=== PATIENT | male | born 1990 | race Caucasian/White ===

== ENCOUNTER 2021-05-02 11:48 | Inpatient (IN) | payer BC, OTHER ==
[~2021-05-02] VITALS: Ht 182.9 cm; Wt 87.1 kg
--- NOTE | 2021-05-02 11:55 | NUR ---
BIBA TO BED 9
[2021-05-02 11:56] VITALS: BP 148/84
--- NOTE | 2021-05-02 11:56 | NUR ---
PD AT BEDSIDE
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
[2021-05-02] MEDS ORDERED: ONDANSETRON 4 MG/2 ML VIAL IVP ONE (12:15)
[2021-05-02] MEDS ORDERED: MORPHINE SULFATE 4 MG/ML SYR IVP ONE (12:15)
--- NOTE | 2021-05-02 12:27 | NUR ---
PT TAKEN TO XRAY VIA [facility]
--- NOTE | 2021-05-02 12:59 | NUR ---
PT RETURNED FROM XRAY
--- NOTE | 2021-05-02 14:47 | NUR ---
PT TAKEN TO CT SCAN VIA [facility]
--- NOTE | 2021-05-02 15:01 | NUR ---
PT RETURNED FROM CT SCAN
--- NOTE | 2021-05-02 15:34 | NUR ---
PAGED [phone] FOR ORTHOPEDIC CONSULT
--- NOTE | 2021-05-02 16:51 | NUR ---
RECEIVED CALL FROM ED FOR REPORT ON NEW ADMIT
[2021-05-02] MEDS ORDERED: ONDANSETRON 4 MG/2 ML VIAL IVP PRN (16:55)
[2021-05-02] MEDS ORDERED: MORPHINE SULFATE 2 MG/ML SYR IVP PRN (16:55)
[2021-05-02] MEDS ORDERED: ACETAMINOPHEN 325 MG TAB PO PRN (16:55)
[2021-05-02] MEDS ORDERED: SODIUM PHOS / POTASSIUM PHOS 1 PKT PDR PO PRN (16:55)
[2021-05-02] MEDS ORDERED: MAG SULF 2000 MG/WATER PREMIX 50 ML IV PRN (16:55)
[2021-05-02] MEDS: NACL 0.9% 1,000 ML IV SCH (16:55)
[2021-05-02] MEDS ORDERED: LORazepam 2 MG/ML VIAL IM/IVP PRN (16:55)
[2021-05-02] MEDS ORDERED: POTASSIUM CHLORIDE 10 MEQ TABER PO PRN (16:55)
[2021-05-02] MEDS ORDERED: DOCUSATE SODIUM 100 MG GELCAP PO PRN (16:55)
[2021-05-02] MEDS ORDERED: ZOLPIDEM 5 MG TAB PO PRN (16:55)
--- NOTE | 2021-05-02 17:01 | NUR ---
XRAY AT BEDSIDE
--- NOTE | 2021-05-02 17:05 | NUR ---
Patient will be admitted to care of DR MALDONADO. Admited to MED SURG. Will go to room 104 B. Belongings list completed. Report to KETAN NELSON.
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
[2021-05-02 18:01] LABS: PROTHROMBIN TIME 10.7 secs (10.8-13.4)
[2021-05-02 18:13] LABS: CHOL/HDL RATIO 2.9 (1-4.5); FREE T4 (FREE THYROXINE) 1.07 ng/dL (0.76-1.46); PHOSPHORUS 2.2 mg/dL (2.5-4.9); THYROID STIMULATING HORMONE 1.32 uIU/mL (0.34-3.74)
[2021-05-02 18:20] VITALS: BP 131/71
--- NOTE | 2021-05-02 19:22 | NUR ---
PT HAS BEEN ENDORSED TO ONLINE BANKING SPECIALIST NURSE IN STABLE CONDITION. POC DISCUSSED.
--- NOTE | 2021-05-02 19:23 | NUR ---
RECEIVED PT FROM DAY SHIFT NURSE FOR CONTINUITY OF CARE. PT IS AWAKE, ALERT AND ORIENTED. ON ROOM AIR. PT HAS A RIGHT AC 20 G RUNNING NS AT 100.ALL PRECAUTIONS IN PLACE. CALL LIGHT WITHIN REACH. WILL CONTINUE TO MONITOR.
[2021-05-02 20:00] VITALS: BP 124/63
[2021-05-02] MEDS: HYDROcodone/APAP 5/325 MG 1 TAB TAB PO PRN (21:00)
--- NOTE | 2021-05-02 21:00 | NUR ---
PT COMPLAINED OF PAIN ON PELVIC AREA. PRN PAIN MEDICATION GIVEN.CALL LIGHT WITHIN REACH. WILL CONTINUE TO MONITOR.
--- NOTE | 2021-05-02 23:30 | NUR ---
PT ASLEEP.VISIBLE CHEST RISE AND FALL NOTED. SAFETY MEASURES IN PLACE. CALL LIGHT WITHIN REACH. WILL CONTINUE TO MONITOR.
[2021-05-02 23:55] LABS: APPEARANCE,URINE CLEAR (CLEAR); BILIRUBIN,URINE NEGATIVE (NEGATIVE); BLOOD, URINE NEGATIVE (NEGATIVE); COLOR,URINE YELLOW (YELLOW); LEUKOCYTE ESTERASE ,URINE NEGATIVE (NEGATIVE); NITRITE, URINE NEGATIVE (NEGATIVE); PH,URINE 6.5 (5.0-9.0); UGLUCOSE NEGATIVE (NEGATIVE)
[2021-05-03 00:05] LABS: BARBITURATE, URINE NEGATIVE ng/ml (NEG <=200); BENZODIAZEPINE, URINE NEGATIVE ng/mL (NEG <=200); CANNABINOID, URINE POSITIVE ng/mL (NEG <=50); COCAINE, URINE POSITIVE ng/mL (NEG <=300); OPIATE, URINE POSITIVE ng/mL (NEG <=2000); PHENCYCLIDINE SCREEN,URINE NEGATIVE ng/mL (NEG <=25)
[2021-05-03] MEDS: NACL 0.9% 1,000 ML IV SCH ×3 (02:55→23:02)
--- NOTE | 2021-05-03 03:05 | NUR ---
ROUNDS MADE. PT ASKED FOR BLANKET. ALL NEEDS ATTENDED. PT STABLE. NO OTHER COMPLAINS AT THIS TIME. CALL LIGHT WITHIN REACH. WILL CONTINUE TO MONITOR.
[2021-05-03 04:00] VITALS: BP 116/72
[2021-05-03 06:33] LABS: BASOPHILS % (AUTO) 0.4 % (0.0-2.0); EOSINOPHILS # (AUTO) 0.1 K/uL (0-0.4); EOSINOPHILS % (AUTO) 0.6 % (0.0-4.0); HEMATOCRIT 38.5 % (36-52); HEMOGLOBIN 13.1 g/dL (12.0-18.0); LYMPHOCYTES # (AUTO) 1.2 K/uL (2.0-11.5); LYMPHOCYTES % (AUTO) 13.2 % (20.5-51.1); MEAN CORPUSCULAR HEMOGLOBIN 32 pg (27-31); MEAN CORPUSCULAR HGB CONC 34 g/dL (33-37); MEAN CORPUSCULAR VOLUME 94.8 fL (80-94); MONOCYTES # (AUTO) 0.9 K/uL (0.8-1.0); MONOCYTES % (AUTO) 9.9 % (1.7-9.3); NEUTROPHILS % (AUTO) 75.9 % (42.2-75.2); PLATELET COUNT (AUTO) 204 K/uL (140-450); RED BLOOD CELL COUNT(AUTO) 4.06 MIL/uL (4.20-6.10); WHITE BLOOD COUNT (AUTO) 9.2 K/uL (4.8-10.8)
--- NOTE | 2021-05-03 06:37 | NUR ---
PT STABLE. NO ACUTE EVENTS THROUGHOUT THE NIGHT. PT NOT IN DISTRESS AND HAS NO COMPLAINS AT THIS TIME. ALL NEEDS ATTENDED.CALL LIGHT WITHIN REACH.WILL ENDORSE TO AM SHIFT NURSE.FOR CONTINUITY OF CARE.
[2021-05-03 06:54] LABS: ALBUMIN 3.8 g/dL (3.4-5.0); ANION GAP 11.3 (8-16); CARBON DIOXIDE 27.3 mmol/L (21-32); CREATININE 0.8 mg/dL (0.6-1.3); POTASSIUM 3.6 mmol/L (3.5-5.1); TOTAL BILIRUBIN 2.8 mg/dL (0.0-1.0)
--- NOTE | 2021-05-03 07:05 | NUR ---
RECEIVED REPORT FROM PET COUNSELOR NURSE FOR CONTINUITY OF CARE. PATIENT IN BED SLEEPING AT THIS TIME. RESPIRATIONS ARE EVEN AND UNLABORED. NO SIGNS OF DISTRESS NOTED. PATIENT IS ALERT AND ORIENTED X4. ABLE TO VERBALIZE NEEDS. PATIENT IS ON ROOM AIR. PATIENT IS ON REGULAR DIET, ABD IS NON-TENDER, NON-DISTENDED WITH BOWEL SOUNDS PRESENT. PATIENT IS CONTINENT OF BOWEL AND BLADDER. UTILIZES URINAL AT BEDSIDE. PATIENT HAS IV TO LFA 22G. IV IS PATENT, AND INTACT, AND INFUSING NS @ 100 ML/HR. PATIENT PATIENT HAS ABRASION TO L FLANK, L KNEE, AND RFA. WILL CONTINUE TO MONITOR. CALL LIGHT WITHIN REACH. ALL SAFETY MEASURES IN PLACE.
--- NOTE | 2021-05-03 07:43 | NUR ---
PT ENDORSED TO AM SHIFT NURSE FOR CONTINUITY OF CARE. PT IS STABLE.
[2021-05-03] MEDS: HYDROcodone/APAP 5/325 MG 1 TAB TAB PO PRN ×3 (08:19→20:47)
--- NOTE | 2021-05-03 08:19 | NUR ---
PATIENT VERBALIZED PAIN. RATED PAIN AT 6/10. WILL MEDICATE PER MD ORDER. WILL CONTINUE TO MONITOR.
--- NOTE | 2021-05-03 09:21 | NUR ---
RE-ASSESSED PATIENT PAIN SCALE. PATIENT IN BED RESTING AT THIS TIME. WILL CONTINUE TO MONITOR.
--- NOTE | 2021-05-03 09:37 | NUR ---
PATIENT HAS BEEN SCREENED AND CATEGORIZED LOW NUTRITION RISK. PATIENT WILL BE SEEN WITHIN 7 DAYS OF ADMISSION. 05/09/21 REFERRAL RECEIVED NOT APPLICABLE [address]IN[address]
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
--- NOTE | 2021-05-03 11:45 | NUR ---
DID ROUNDS ON PATIENT. PATIENT IN BED WATCHING TELEVISION AT THIS TIME. PATIENT STATED HE WAS STARTING TO FEEL SOME DISCOMFORT/PAIN. RATES PAIN 2/. EDUCATED PATIENT ON ALTERNATIVE PAIN MANAGEMENT TECHNIQUES/RELAXATION TECHNIQUES. PATIENT STATED HE WILL "GIVE IT A TRY". WILL CONTINUE TO MONITOR.
--- NOTE | 2021-05-03 14:47 | NUR ---
PATIENT COMPLAIN OF PAIN. PATIENT STATES PAIN IS 6/10. WILL MEDICATE PER MD ORDER. WILL CONTINUE TO MONITOR.
[2021-05-03 16:00] VITALS: BP 112/62
--- NOTE | 2021-05-03 17:12 | NUR ---
DID ROUNDS ON PATIENT. PATIENT IN BED TALKING ON THE PHONE WITH FAMILY. RESPIRATIONS ARE EVEN AND UNLABORED. NO SIGNS OF DISTRESS NOTED. WILL CONTINUE TO MONITOR.
--- NOTE | 2021-05-03 19:05 | NUR ---
ENDORSED PATIENT TO DRONE OPERATOR NURSE FOR CONTINUITY OF CARE. PATIENT STABLE.
--- NOTE | 2021-05-03 19:06 | NUR ---
RECEIVED ENDORSEMENT FROM MORNING SHIFT FOR CONTINUITY OF CARE. PATIENT ALERT AND AWAKE. A&O X4. VERBALLY RESPONSIVE AND ABLE TO COMMUNICATE NEEDS. DENIES PAIN AT THIS TIME. ON RA WITH AN 02 SAT OF 98%. RESPIRATIONS EVEN AND UNLABORED. NO APPARENT S/SX OF ACUTE RESPIRATORY DISTRESS NOTED AT THIS TIME. IV SITE ON LFA 22G PATENT AND INTACT WITH NS INFUSING @ 100 ML/HR. PATIENT HAS ABRASION TO L FLANK, L KNEE, AND RFA. POC AND WHITE BOARD COMMUNICATION UPDATED. ALL SAFETY MEASURES IN PLACE. CALL LIGHT WITHIN REACH. ENCOURAGED PATIENT TO USE CALL LIGHT FOR ANY NEEDS/ASSISTANCE. WILL CONTINUE TO MONITOR
--- NOTE | 2021-05-03 19:07 | NUR ---
Patient's Plan of Care was discussed and reviewed with NAZARIO: yvonne. will continue to monitor
--- NOTE | 2021-05-03 20:40 | NUR ---
PATIENT C/O OF GENERALIZED PAIN 12/02. WILL ADMINISTER PRN MEDICATION PER MD ORDER.
--- NOTE | 2021-05-03 22:40 | NUR ---
CHECKED PATIENT. STABLE AND AWAKE WATCHING TV. DENIES PAIN AT THIS TIME. RESPIRATIONS EVEN AND UNLABORED. NO APPARENT S/SX OF ACUTE RESPIRATORY DISTRESS. WHITE BOARD COMMUNICATION UPDATED. ALL SAFETY MEASURES IN PLACE. CALL LIGHT WITHIN REACH. WILL CONTINUE TO MONITOR.
[2021-05-04] VITALS: BP 107/55
--- NOTE | 2021-05-04 00:40 | NUR ---
ROUNDED ON PATIENT. STABLE AND ASLEEP IN SUPINE POSITION. BED IN HIGH FOWLERS. RESPIRATIONS EVEN AND UNLABORED. NO APPARENT S/SX OF ACUTE RESPIRATORY DISTRESS. WHITE BOARD COMMUNICATION UPDATED. ALL SAFETY MEASURES IN PLACE. CALL LIGHT WITHIN REACH. WILL CONTINUE TO MONITOR.
--- NOTE | 2021-05-04 02:40 | NUR ---
ANSWERED CALL LIGHT. PATIENT C/O OF LEFT HIP PAIN 12/02. WILL ADMINISTER PRN MEDICATION PER MD ORDER.
[2021-05-04] MEDS: HYDROcodone/APAP 5/325 MG 1 TAB TAB PO PRN ×2 (02:48→09:54)
--- NOTE | 2021-05-04 04:40 | NUR ---
CHECKED PATIENT. STABLE AND ASLEEP. CHEST RISING AND FALLING. RESPIRATIONS EVEN AND UNLABORED. NO APPARENT S/SX OF ACUTE RESPIRATORY DISTRESS. WHITE BOARD COMMUNICATION UPDATED. ALL SAFETY MEASURES IN PLACE. CALL LIGHT WITHIN REACH. WILL CONTINUE TO MONITOR.
[2021-05-04 06:35] LABS: ALBUMIN 3.8 g/dL (3.4-5.0); ANION GAP 12.4 (8-16); BASOPHILS % (AUTO) 0.6 % (0.0-2.0); CARBON DIOXIDE 27.4 mmol/L (21-32); CREATININE 0.8 mg/dL (0.6-1.3); EOSINOPHILS # (AUTO) 0.1 K/uL (0-0.4); EOSINOPHILS % (AUTO) 0.9 % (0.0-4.0); HEMATOCRIT 37.7 % (36-52); HEMOGLOBIN 12.9 g/dL (12.0-18.0); LYMPHOCYTES # (AUTO) 1.4 K/uL (2.0-11.5); LYMPHOCYTES % (AUTO) 20.1 % (20.5-51.1); MEAN CORPUSCULAR HEMOGLOBIN 33 pg (27-31); MEAN CORPUSCULAR HGB CONC 34 g/dL (33-37); MEAN CORPUSCULAR VOLUME 95.2 fL (80-94); MONOCYTES # (AUTO) 0.7 K/uL (0.8-1.0); MONOCYTES % (AUTO) 9.7 % (1.7-9.3); NEUTROPHILS # (AUTO) 4.7 K/uL (1.8-7.7); NEUTROPHILS % (AUTO) 68.7 % (42.2-75.2); PLATELET COUNT (AUTO) 181 K/uL (140-450); POTASSIUM 3.8 mmol/L (3.5-5.1); RED BLOOD CELL COUNT(AUTO) 3.96 MIL/uL (4.20-6.10); TOTAL BILIRUBIN 1.5 mg/dL (0.0-1.0); WHITE BLOOD COUNT (AUTO) 6.8 K/uL (4.8-10.8)
--- NOTE | 2021-05-04 07:01 | NUR ---
PATIENT ENDORSED TO MORNING SHIFT FOR CONTINUITY OF CARE. PATIENT IS STABLE.
--- NOTE | 2021-05-04 07:03 | NUR ---
RECEIVED REPORT FROM INSPECTOR GENERAL NURSE FOR CONTINUITY OF CARE. PATIENT IS IN BED SLEEPING AT THIS TIME. RESPIRATIONS ARE EVEN AND UNLABORED. NO SIGNS OF DISTRESS NOTED. PATIENT IS ON ROOM AIR, WITH 02 SAT AT 99%. PATIENT IS ALERT AND ORIENTED X4. PATIENT ABLE TO VERBALIZE NEEDS TO STAFF. PATIENT IS ON REGULAR DIET, ABD IS SOFT, NON-TENDER, AND NON-DISTENDED WITH BOWEL SOUNDS PRESENT. PATIENT HAS IV TO LFA 22G. IV IS INTACT AND PATENT, INFUSING NS @ 100ML/HR. PATIENT HAS ABRASION TO L FLANK, L KNEE, AND R FA, OPEN TO AIR. PATIENT SKIN IS WARM, AND DRY. WILL CONTINUE TO MONITOR. ALL SAFETY MEASURES IN PLACE. CALL LIGHT WITHIN REACH.
[2021-05-04 08:00] VITALS: BP 122/70
[2021-05-04] MEDS: NACL 0.9% 1,000 ML IV SCH (09:16)
--- NOTE | 2021-05-04 09:16 | NUR ---
DID ROUNDS ON PATIENT. PATIENT IN BED EATING BREAKFAST AT THIS TIME. CHANGED PATIENT NS BAG. NS RUNNING AT 100ML/HR. IV IS INTACT AND PATENT. NO SIGNS OF REDNESS OR SWELLING TO IV SITE. WILL CONTINUE TO MONITOR.
--- NOTE | 2021-05-04 09:54 | NUR ---
PATIENT COMPLAIN OF PAIN. RATED PAIN 5/10. MEDICATED PER MD ORDER. WILL CONTINUE TO MONITOR. WILL RE-ASSESS PAIN IN 1 HOUR.
--- NOTE | 2021-05-04 10:54 | NUR ---
RE-ASSESSED PATIENT PAIN LEVEL. PATIENT RESTING AT THIS TIME. NO SIGNS OF DISTRESS NOTED. NO COMPLAINTS OF PAIN OR DISCOMFORT. WILL CONTINUE TO MONITOR.
[2021-05-04 11:41] VITALS: BP 122/70
--- NOTE | 2021-05-04 12:00 | NUR ---
DISCHARGE ORDER IN PLACE. WENT OVER DISCHARGE PAPERWORK WITH PATIENT. EDUCATED PATIENT ON DISCHARGE PAPERWORK. PATIENT VERBALIZED AN UNDERSTANDING OF INFORMATION PROVIDED. PATIENT STATED "I JUST WANNA GET OUT OF HERE". PATIENT DISCHARGED FROM UNIT. PATIENT DC HOME WITH FAMILY VIA PRIVATE VEHICLE. IV CATHETER REMOVED. IV CATHETER IN TACT. WRIST BAND REMOVED.
== END 2021-05-04 12:08 | disposition home or self-care (01) | DRG 535 ==
LOC: MED 11:48 → MTU 16:28
PROVIDERS: ADMIT Family Medicine; ATTEND Family Medicine
DX: S32.502A Unspecified fracture of left pubis, initial encounter for closed fracture (principal); S32.402A Unspecified fracture of left acetabulum, initial encounter for closed fracture; S32.592A Other specified fracture of left pubis, initial encounter for closed fracture; W18.39XA Other fall on same level, initial encounter; Y93.89 Activity, other specified; Y92.89 Other specified places as the place of occurrence of the external cause; Y99.8 Other external cause status
CPT/HCPCS: 36415; 71045; 72050; 72192; 73110; 73130; 73502; 73562; 80053; 80305; 81003; 82150; 83036; 83690; 83735; 83880; 84100; 84439; 84443; 84484; 85025; 85610; 85730; 87081; 96374; 96375; 97116; 97163-GP; 97530; 99285; J2270; J2405; Q0092